=== PATIENT | female | born 2000 | race Hispanic/Latino ===

== ENCOUNTER 2018-05-17 19:37 | Inpatient (IN) | payer OTHER, SELFPAY ==
[2018-05-17] MEDS ORDERED: Phenazopyridine HCl 97.5 MG TABLET ONE (20:01)
[2018-05-17 20:17] LABS: Bilirubin Negative (Negative); Blood, Urine Small (Negative); Glucose, Urine (Dipstick) 500 mg/dL (Negative); Leukocyte Negative (Negative); Nitrite Negative (Negative); Protein, Urine (Dipstick) 100 mg/dL (Neg-Trace); Specific Gravity, Urine 1.025 (1.005-1.030); Urobilinogen 0.2 mg/dL (0.2-1.0); pH, Urine 5.5 (5.0-9.0)
[2018-05-17 20:18] LABS: Hemoglobin 10.9 g/dL (12.0-16.0); Mean Corpuscular HGB CONC 30.4 g/dL (32.0-36.0); Mean Corpuscular Hemoglobin 21.7 pg (25.0-35.0); Mean Corpuscular Volume 71.3 fL (78.0-98.0); Platelet Count 202 thou/uL (130-400); RBC Distribution Width 14.3 % (11.5-14.5); Red Blood Cell (RBC) Count 5.05 mill/uL (4.00-5.20)
[2018-05-17 20:19] LABS: Clarity Hazy (Clear)
[2018-05-17 20:20] LABS: Pregnancy Test - Urine (BHCG) Negative (Negative); Pregu Control Background? CLEAR/WHITE (CLR/WHITE); Pregu Control Bar Appear? YES (CONTROL BAR); Specific Gravity 1.025 (1.002-1.036)
[2018-05-17 20:25] LABS: Bacteria/HPF 3+ HPF (None Seen); WBC/HPF None Seen HPF (0-3)
[2018-05-17 20:29] LABS: #Basophils 0.2 thou/uL (0.0-0.2); #Monocytes 1.5 thou/uL (0.11-0.59); #Neutrophils 13.2 thou/uL (1.40-6.50); %Basophils 1.4 % (0.0-1.0); %Lymphocytes 6.3 % (28.0-48.0); %Monocytes 9.6 % (0.0-4.0); %Neutrophils 82.7 % (31.0-61.0); Hypochromia SLIGHT = 6-15 cells (100X) (0-5/hpf); Large Platelets SLIGHT; MDiff Complete? YES; Microcytosis SLIGHT = 6-15 cells (100X) (0-5/hpf); Ovalocytes SLIGHT = 2-5 cells (100X) (0-1/hpf); PLT Morphology Comment Appears Adequate
[2018-05-17 20:31] LABS: ALT (SGPT) 76 U/L (8-55); AST (SGOT) 32 U/L (5-34); Albumin 3.9 g/dL (3.5-5.0); Alkaline Phosphatase 72 U/L (40-150); Anion Gap 18 mmol/L (10-20); BUN (Urea Nitrogen) 12 mg/dL (7.0-18.7); Bilirubin, Total 1.6 mg/dL (0.2-1.2); Calc. Creatinine Clearance 0 mL/min (70-130); Calcium 9.1 mg/dL (7.8-10.44); Carbon Dioxide 21 mmol/L (22-29); Chloride 94 mmol/L (98-107); Estimated GFR-MDRD 83; Globulin 3.2 g/dL (2.4-3.5); Glucose 360 mg/dL (70-105); Lipase 638 U/L (8-78); Potassium 4.3 mmol/L (3.5-5.1); Protein, Total 7.1 g/dL (6.0-8.3); Sodium 129 mmol/L (136-145)
[2018-05-17] MEDS ORDERED: Ondansetron PF 4 MG/2 ML Vial ONE (21:11)
[2018-05-17] MEDS ORDERED: Morphine 4 MG/ML VIAL ONE (21:11)
[2018-05-17] MEDS ORDERED: Famotidine/PF 20 mg/2ml Vial ONE (21:11)
[2018-05-17] MEDS ORDERED: HYDROcodone/Acetaminophen 5/325 mg Tablet ONE (22:47)
--- NOTE | 2018-05-17 23:10 | ULT ---
RIGHT UPPER QUADRANT ULTRASOUND: 05/17/18 INDICATION: Epigastric abdominal pain with bilateral flank pain, nausea and vomiting, fever. FINDINGS: The liver is mildly enlarged measuring 18.2 cm. There is mild ascites. The gallbladder is distended w ith multiple stones. No gallbladder wall thickening is evidence. There is report of a sonographic Mur phy's sign. Small amount of fluid is seen adjacent to the gallbladder. Common bile duct measures 4.7 mm. The pancreas is largely obscured. The right kidney measures 13 cm. No focal region lesion or hydronep hrosis evident. IMPRESSION: Mild hepatomegaly with mild ascites. Cholelithiasis with report of a sonographic Chin's sign. Findings are equivocal to acute cholecysti tis. Recommend correlation with clinical exam. HIDA scan may be helpful for further evaluation. POS: STEPHAN
[2018-05-17] MEDS ORDERED: Ondansetron ODT 4 MG TAB PO PRN (23:52)
[2018-05-17] MEDS ORDERED: Acetaminophen 325 MG TAB PO PRN (23:52)
[2018-05-17] MEDS ORDERED: Ondansetron PF 4 MG/2 ML Vial IVP PRN (23:52)
[2018-05-18 00:23] VITALS: BMI 38.0
[2018-05-18] MEDS: Piperacillin/Tazobactam 3.375 GM in Sodium Chloride 0.9% 100 ML IVPB SCH ×4 (01:18→20:01)
[2018-05-18] MEDS: Lactated Ringer's 1,000 ML IV SCH ×5 (01:18→20:01)
[2018-05-18] MEDS: Morphine 2 MG/ML SYRINGE SLOW IVP PRN ×2 (02:30→06:07)
[2018-05-18 05:09] LABS: #Lymphocytes 0.8 thou/uL (1.20-3.40); #Monocytes 1.2 thou/uL (0.11-0.59); %Basophils 0.2 % (0.0-1.0); %Lymphocytes 7.5 % (28.0-48.0); %Monocytes 10.8 % (0.0-4.0); %Neutrophils 81.4 % (31.0-61.0); Hemoglobin 10.3 g/dL (12.0-16.0); Mean Corpuscular HGB CONC 30.9 g/dL (32.0-36.0); Mean Corpuscular Hemoglobin 23.1 pg (25.0-35.0); Mean Corpuscular Volume 74.7 fL (78.0-98.0); Mean Platelet Volume 9.5 fL (7.4-10.4); Platelet Count 221 thou/uL (130-400); RBC Distribution Width 14.8 % (11.5-14.5); Red Blood Cell (RBC) Count 4.45 mill/uL (4.00-5.20); White Blood Cell (WBC) Count 11.1 thou/uL (4.8-10.8)
[2018-05-18 05:19] LABS: Anion Gap 15 mmol/L (10-20); BUN (Urea Nitrogen) 12 mg/dL (7.0-18.7); Calc. Creatinine Clearance 192 mL/min (70-130); Calcium 8.3 mg/dL (7.8-10.44); Carbon Dioxide 20 mmol/L (22-29); Chloride 99 mmol/L (98-107); Estimated GFR-MDRD Greater than 90; Glucose 296 mg/dL (70-105); Potassium 4.2 mmol/L (3.5-5.1); Sodium 130 mmol/L (136-145)
[2018-05-18] MEDS ORDERED: Dextrose 50% Abboject 50 ML SYRINGE SLOW IVP PRN (07:56)
[2018-05-18] MEDS ORDERED: Dextrose 5% in Water 1,000 ML IV PRN (07:56)
--- NOTE | 2018-05-18 09:39 | HP ---
CHIEF COMPLAINT: Abdominal pain. HISTORY OF PRESENT ILLNESS: This is a 18-year-old female with past medical history of GERD, presenti ng with abdominal pain. The patient states that she was having abdominal pain, epigastric and also s uprapubic region, and this started on Wednesday, prior to the day of admission. Patient stated that the pain was stabbing in nature and radiated to the back. Patient also had nausea and vomiting x1 in e morning of admission and this prompted the patient to go to [facility] [place]. The patient was then found to have pancreatitis and patient was transferred to the hospital to be fu rther evaluated and managed. At this point, the patient denied any subjective fevers, shortness of b reath, chest pain, palpitations, dysuria, hematuria, hematochezia, constipation, diarrhea. Of note, patient states that she has had episodes of epigastric pain. Patient stated that she had 3 episodes in the past and she went to [place] twice and she was given Prilosec and was treated for GE RD during that time. REVIEW OF SYSTEMS: Positive for nausea, vomiting, epigastric and suprapubic pain. Otherwise, as doc umented in the HPI, all other systems were reviewed and are negative. FAMILY HISTORY: Reviewed and noncontributory to this visit. PAST MEDICAL HISTORY: GERD. PAST SURGICAL HISTORY: and tonsillectomy. PSYCHIATRIC HISTORY: No previous psychiatric history. SOCIAL HISTORY: The patient denies alcohol use. The patient denies any illicit drug use. The patie nt denies any smoking history. ALLERGIES: No known drug allergies. CURRENT MEDICATION: The patient takes Prilosec for GERD. PHYSICAL EXAMINATION: VITAL SIGNS: Blood pressure is 140/93, pulse of 127, respiratory rate of 20, temperature of 99.7, O2 saturation of 97. GENERAL: The patient is lying in bed, does not appear to be in any acute distress. The patient is s peaking in full sentences. HEENT: Normocephalic, atraumatic. Pupils are equal, round, and react to light. Extraocular movemen ts are intact. No scleral icterus. No conjunctival pallor. Mucous membranes are moist. Trachea is midline. Full range of motion. NECK: Supple. No JVDs. CARDIOVASCULAR: Positive S1 and S2, regular rate and rhythm, no murmurs, no gallops, no rubs appreci ated. ABDOMEN: Patient has tenderness to palpation at the epigastric and right upper quadrants. No perito ingrid signs. EXTREMITIES: Patient has 5/5 upper and lower extremity strength and no edema. Good pulses bilateral ly. NEUROLOGIC: Cranial nerves II-XII grossly intact. SKIN: Warm, dry, and intact. PSYCHIATRIC: Normal affect. ED COURSE: The patient received [place], morphine, Pepcid, Zofran, normal saline, Pyridium. LABORATORY DATA: White count is 16.0, hemoglobin is 10.9, hematocrit is 36.0, MCV 71.3, RDW is 14. Sodium is 121, potassium is 4.3, chloride is 94, carbon dioxide of 21, BUN is 12, creatinine 0.87, gl ucose is 360, AST 32, ALT 76, lipase is 638. IMAGING: Right upper quadrant ultrasound shows cholelithiasis with report of sonographic Chin sign . Findings are equivocal to acute cholecystitis. Recommend correlation with clinical exam. HIDA sc an may be helpful for further evaluation. ASSESSMENT AND PLAN: This is a 18-year-old female with recurrent epigastric pain, being admitted for , 1. Acute pancreatitis, likely due to gallstones. The patient's ultrasound showed the patient has ch olelithiasis, and we will start patient on lactated Ringer's running at 200 mL. We will continue sup portive care. 2. Right upper quadrant pain with positive Chin sign, likely due to acute cholecystitis. At this point, ultrasound did not show clear cholecystitis. However, because the read was equivocal, at this point, we are going to consult Surgery and we are going to recommend that Surgery get HIDA scan and follow up with the HIDA scan. We will follow up with surgery's recommendation, and we will continue to monitor the patient closely. We have started the patient on antibiotics empirically to treat for any possible acute cholecystitis. 3. Hyperglycemia. The patient's glucose has been uncontrolled at this time. We will start patient on insulin sliding scale to control patient's glucose. 4. History of gastroesophageal reflux disease. We will continue patient on Pepcid. 5. Deep venous thrombosis and gastrointestinal prophylaxis.
[2018-05-18] MEDS: HumaLOG 300 UNITS/3 ML VIAL SC PRN ×3 (12:46→21:07)
--- NOTE | 2018-05-19 00:36 | CON ---
DATE OF CONSULTATION: 05/18/2018 REQUESTING PHYSICIAN: Dr. Damien Gray. HISTORY OF PRESENT ILLNESS: Ms. Burciaga is a 18-year-old woman, , with a past medical history of gastroesophageal reflux disease. The patient presented with recurrent epigastric to right upper quadrant abdominal pain. The pain started approximately 0400 hours 3 days ago. She had luis soup for dinner the night before onset of this pain. Pain was described as sharp, rated at 9/10, radiating to her back. The patient admitted some nausea, but no emesis. She denied any diarrhea. She denies any fevers or chills. She has had 3 previous episodes in the past for which she was treated for gastroesophageal reflux disease using a proton-pump inhibitor with minimum relief. An onset of this current pain, patient took [id number] preparations including Pepto-Bismol without any improvement. PAST MEDICAL HISTORY: Pertinent for gastroesophageal reflux disease. PAST SURGICAL HISTORY: 3 months ago for a second child. She also had childhood tonsillectomy and adenoidectomy. SOCIAL HISTORY: She is employed as a charge entry clerk. She lives at home with her father and denies any cigarette smoking, ethanol, or illicit drug abuse. FAMILY HISTORY: Notable for diabetes mellitus, but no hypertension, heart disease, or cancer. PREHOSPITALIZATION MEDICATIONS: Omeprazole 40 mg p.o. daily. ALLERGIES: Patient denies any known drug allergies. REVIEW OF SYSTEMS: Ten-point review of systems essentially unremarkable except for as stated in past medical history and chief complaint. PHYSICAL EXAMINATION: GENERAL: This reveals a 18-year-old normally developed woman who is coherent and interactive and appears stated age. The patient is alert and oriented x3, appears to be in no acute distress at the time of my evaluation. VITAL SIGNS: Includes blood pressure 115/79, pulse is 106, respiratory rate is 16, temperature 99.1 degrees Fahrenheit, oxygen saturation is 95% on room air. HEENT: Reveals normocephalic and atraumatic. Pupils are equal, round, and reactive to light and accommodation. She has no sclerae icterus present. Oral mucosa is pink and moist. No lesions are noted. NECK: Supple. No palpable lymphadenopathy or thyromegaly present. HEART: Reveals regular rate with sinus tachycardia. No murmurs or gallops auscultated. LUNGS: Clear to auscultation bilaterally. Breathing regular and unlabored. ABDOMEN: Soft and nondistended. She has right upper quadrant tenderness to palpation. Liver and spleen otherwise nonpalpable below costal margin. She has no rebound tenderness present. EXTREMITIES: Reveals 2+ radial and pedal pulses bilaterally. No ankle edema is present. NEUROLOGIC: Reveals no focal deficits present. LABORATORY AND DIAGNOSTIC FINDINGS: Includes a CBC today with 11,100 white blood cells, this is in contrast to 16,000 white blood cells yesterday. Hemoglobin and hematocrit are stable at 10.3 and 33.2 respectively. Platelet count is 221,000. Metabolic profile: Sodium is 130, potassium is 4.2, chloride is 99, bicarbonate 20, BUN 12, creatinine 0.79, glucose is 296. Serum lipase today is 314, this is an improvement from 638 yesterday. I have personally reviewed the abdominal ultrasound, which is remarkable for distended gallbladder with multiple intraluminal gallstones. There is pericholecystic fluid present. Common bile duct size is enlarged for this patient's age at 4.7 mm in diameter. IMPRESSION: 1. Acute cholecystitis with cholelithiasis. 2. Acute gallstone pancreatitis. 3. Acute hyperglycemia. PLAN: 1. Continue with bowel rest and IV hydration. 2. I agree with IV antibiotic therapy at this time. 3. We will plan for laparoscopic cholecystectomy with intraoperative cholangiogram once the pancreatitis is resolved. Above findings and plan have been discussed with the patient. I have also advised the patient of the risk and benefits of the proposed surgery to include , but not limited to bleeding, infection, injury to bile duct or surrounding structures. This information was given to the patient in the presence of her nurse. She indicated understanding of information given. Thank you again, Dr. Gray, for following me the opportunity to participate in the care of this patient. CLAYTON
[2018-05-19] MEDS: Morphine 2 MG/ML SYRINGE SLOW IVP PRN (01:35)
[2018-05-19] MEDS: Piperacillin/Tazobactam 3.375 GM in Sodium Chloride 0.9% 100 ML IVPB SCH ×4 (01:36→20:29)
[2018-05-19] MEDS: Lactated Ringer's 1,000 ML IV SCH ×3 (01:37→20:29)
[2018-05-19 06:19] LABS: #Lymphocytes 0.8 thou/uL (1.20-3.40); #Monocytes 1.1 thou/uL (0.11-0.59); #Neutrophils 6.8 thou/uL (1.40-6.50); %Basophils 0.4 % (0.0-1.0); %Eosinophils 0.2 % (0.0-10.0); %Lymphocytes 9.1 % (28.0-48.0); %Monocytes 12.8 % (0.0-4.0); %Neutrophils 77.4 % (31.0-61.0); Hemoglobin 8.9 g/dL (12.0-16.0); Mean Corpuscular HGB CONC 30.9 g/dL (32.0-36.0); Mean Corpuscular Hemoglobin 23.3 pg (25.0-35.0); Mean Corpuscular Volume 75.4 fL (78.0-98.0); Mean Platelet Volume 9.4 fL (7.4-10.4); Platelet Count 212 thou/uL (130-400); RBC Distribution Width 14.8 % (11.5-14.5); Red Blood Cell (RBC) Count 3.84 mill/uL (4.00-5.20); White Blood Cell (WBC) Count 8.8 thou/uL (4.8-10.8)
[2018-05-19 06:29] LABS: ALT (SGPT) 36 U/L (8-55); AST (SGOT) 14 U/L (5-34); Albumin 3.1 g/dL (3.5-5.0); Alkaline Phosphatase 61 U/L (40-150); Anion Gap 12 mmol/L (10-20); BUN (Urea Nitrogen) 9 mg/dL (7.0-18.7); Bilirubin, Total 0.9 mg/dL (0.2-1.2); Calc. Creatinine Clearance 229 mL/min (70-130); Calcium 8.2 mg/dL (7.8-10.44); Carbon Dioxide 25 mmol/L (22-29); Chloride 102 mmol/L (98-107); Estimated GFR-MDRD Greater than 90; Globulin 2.7 g/dL (2.4-3.5); Glucose 242 mg/dL (70-105); Lipase 103 U/L (8-78); Potassium 3.8 mmol/L (3.5-5.1); Protein, Total 5.8 g/dL (6.0-8.3); Sodium 135 mmol/L (136-145)
--- NOTE | 2018-05-19 07:58 | PRG ---
DATE OF SERVICE: 05/19/2018 SUBJECTIVE: The patient is seen and examined at bedside. She is not having any pain, no nausea, no vomiting. She is feeling significantly better. OBJECTIVE: VITAL SIGNS: Blood pressure is 119/81, pulse is 101, temperature is 98.3, respiratory rate is 16, pu lse oximetry is 98% on room air. HEENT: Head is atraumatic, normocephalic. Eyes are PERRLA. Sclerae nonicteric. Oral mucosa is leticia st. NECK: Supple, no lymphadenopathy. LUNGS: Clear. HEART: S1, S2 normal. ABDOMEN: Soft, nontender, nondistended. Bowel sounds are present, no organomegaly. EXTREMITIES: No clubbing, cyanosis or edema. NEUROLOGIC: She is alert and oriented x4. There is not any sensorimotor deficits present. Cranial nerves are intact. LABORATORY DATA: Showed white count of 8.8, hemoglobin 8.9, hematocrit 29.0, MCV 75.4, platelet coun t is 212, 77% of neutrophils. Sodium of 135, glucose is ranging from 230-272, alkaline phosphatase i s 61, total protein 5.8, lipase 103. IMPRESSION: 1. Acute pancreatitis secondary to gallstones. She is doing significantly better. She does not hav e much pain anymore. She was seen by Dr. Foley, general surgeon, who would like to wait until pancre atitis is improved so he can do the cholecystectomy. 2. Acute cholecystitis. As above we are waiting for the surgeon to make decision when she is going to have the surgery. 3. Hyperglycemia. She is not aware of any diabetes in the past. Her glycemia is ranging from 230-2 83. We will use insulin every 6 hours to cover and most likely she will be released on oral metformi n after the surgery. We will continue current regimen. Continue Zosyn IV and awaiting decision by general surgeon about t he cholecystectomy.
[2018-05-19] MEDS ORDERED: Glycopyrrolate 0.2 MG/ML 5 ML SYRINGE ONE (10:48)
[2018-05-19] MEDS ORDERED: Ketorolac Tromethamine 30 MG/ML VIAL ONE (10:48)
[2018-05-19] MEDS ORDERED: Lidocaine 1% PF 5 ML VIAL ONE (10:48)
[2018-05-19] MEDS ORDERED: PROPOFOL 200 MG/20 ML VIAL ONE (10:48)
[2018-05-19] MEDS ORDERED: Ondansetron PF 4 MG/2 ML Vial ONE (10:48)
[2018-05-19] MEDS ORDERED: Iothalamate Meglumine 60% 50 ML VIAL FS ONE (12:13)
[2018-05-19] MEDS ORDERED: Bupivacaine/Epinephrine 0.25% 30 ML VIAL ONE (12:13)
[2018-05-19] MEDS ORDERED: Fentanyl 100 MCG/2 ML VIAL ONE (12:21)
[2018-05-19] MEDS ORDERED: Insulin Regular 300 UNITS/3 ML VIAL ONE (13:04)
[2018-05-19] MEDS ORDERED: Piperacillin/Tazobactam 3.375 GM VIAL ONE (13:08)
[2018-05-19] MEDS ORDERED: Promethazine HCl 25 MG/ML VIAL IM PRN (14:32)
[2018-05-19] MEDS ORDERED: Ondansetron HCl/PF 4 MG/2 ML Vial IVP PRN (14:32)
[2018-05-19] MEDS ORDERED: Promethazine HCl 25 MG/ML VIAL SLOW IVP PRN (14:32)
[2018-05-19] MEDS ORDERED: Morphine 2 MG/ML SYRINGE SLOW IVP PRN (14:58)
[2018-05-19] MEDS ORDERED: traMADol HCl 50 MG TAB PO PRN (14:59)
--- NOTE | 2018-05-19 15:39 | RAD ---
INTRAOPERATIVE CHOLANGIOGRAM: HISTORY: A 18-year-old female with a history of gallstones status post laparoscopic cholecystectomy. FINDINGS: Three portable fluoroscopic spot films were presented for interpretation. Contrast media is ejected through the cystic duct filling a normal caliber common bile duct. On one of the images, there is a suggestion of some minimal decreased density in the common hepatic duct region. This may just be rel ated to overlying bone or could possibly represent small air bubbles. I think this would be unlikely to represent a calculus or calculi. There is emptying from the common bile duct into the duodenum. IMPRESSION: No overt retained calculus. Emptying of the common duct into the duodenum. POS: STEPHAN
[2018-05-19] MEDS ORDERED: Acetaminophen 500 MG TAB PO SCH (18:00)
[2018-05-19] MEDS ORDERED: Ketorolac Tromethamine 30 MG/ML VIAL IVP SCH (18:00)
--- NOTE | 2018-05-19 18:22 | OP ---
DATE OF OPERATION: 05/19/2018 PREOPERATIVE DIAGNOSES: 1. Acute cholecystitis and cholelithiasis. 2. Resolved acute gallstone pancreatitis. POSTOPERATIVE DIAGNOSES: 1. Acute cholecystitis and cholelithiasis. 2. Resolved acute gallstone pancreatitis. 3. Hemorrhagic pelvic fluid suspicious for ruptured ovarian cyst. SURGERY PERFORMED: Laparoscopic appendectomy with normal intraoperative cholangiogram. SURGEON: Jaison Foley DO ANESTHESIA: General endotracheal. ESTIMATED BLOOD LOSS: 20 mL. FLUIDS GIVEN: 1400 mL crystalloids. SPONGE AND INSTRUMENT COUNT: Certified as correct x2. COMPLICATIONS: None apparent at the time of operation. INDICATIONS FOR OPERATION: This is a 18-year-old woman presented with abdominal pain. Clin ical and radiographic examination was consistent with acute gallstone pancreatitis. The patient was managed conservatively with bowel rest and IV hydration. Today, she denies any abdominal pain. She has no nausea or vomiting. Lipase is almost normal. Abdominal ultrasound revealed multiple intralum inal gallstones and a dilated gallbladder with pericholecystic fluid and common bile duct was dilated for the patient's age at 4.7 mm. Decision was made to bring the patient to the operating room today for laparoscopic cholecystectomy with intraoperative cholangiogram. Findings are consistent with ga llbladder in the usual anatomic location completely encased by omental adhesions. The patient was al so found with an incidental hemorrhagic pelvic ascites. She did not have any previous history of tra aleksey. DESCRIPTION OF PROCEDURE: Informed consent was obtained and the patient was brought to the operating room and placed in supine position. Following general anesthesia, abdomen was sterilely prepped and draped in usual fashion. The skin below the umbilicus was infiltrated with 0.25% Marcaine with epin ephrine. A small curvilinear infraumbilical incision was made using an 11-scalpel. Umbilical stalk was grasped with [place] and elevated. Veress needle was inserted through the incision and placed in the peritoneal cavity through which the abdomen was insufflated with 3 liters of CO2 gas. Intraabdom inal pressure noted at 2 mmHg. Following abdominal insufflation, Veress needle was removed and a 5-m m trocar introduced using the Visiport under laparoscopy. Laparoscopy confirmed proper placement of the port, no injuries to underlying structures. Additional laparoscopy revealed gallbladder in the u sual anatomic location completely encased by omental adhesions. Additional laparoscopy reveals moder ate amount of hemorrhagic ascites in the pelvis that was old blood. This will be consistent with this patient's drop in hemoglobin from 10.9 on 05/17/2018 to 8.9 this mo rning. Under laparoscopy, a 12-mm epigastric and two 5-mm right lateral subcostal ports were placed after the overlying skin was infiltrated with 0.25% Marcaine with epinephrine and appropriate incisio ns made. The patient was placed in the reverse Trendelenburg position, rotated to her left. I intro duced [place] dissector with cautery to take down omental adhesions to reveal a markedly dilated gal lbladder. A Prestige grasper was then introduced through the right lateral subcostal port, grasping the fundus of the gallbladder, which was elevated cephalad. Omental adhesions were then dissected of f the remainder of the gallbladder meticulously with good hemostasis achieved. A second Prestige gra sper was then introduced through the right medial subcostal port grasping the Kelly's pouch, which was retracted laterally. An anterior coursing cystic artery was dissected free from surrounding str uctures at the triangle of Calot. This was then divided between clips. Two clips applied proximally and one clip at the junction of the cystic artery and gallbladder. The cystic duct was carefully di ssected free from surrounding structures. I placed one clip at the junction of the cystic duct and g allbladder and a cystotomy was then made proximal to the securing clip. A cholangiocatheter was intr oduced through the right upper quadrant and inserted into the cystic ductal lumen securing this with a single clip. Saline was flushed through this without resistance. Cholangiogram was performed using 10 mL of Conray contrast. Cholangiogram revealed no filling defect s. Total fluoroscopy time was 18 seconds. Following cholangiography, the securing clip was removed and the catheters were removed from the abdo hal cavity. The cystic duct was divided between clips, applying two clips proximally. Gallbladder surface removed from the liver bed using cautery with good hemostasis. Operative site was inspected for good hemostasis. Finding no other pathology, laparoscopy was terminated. The pelvic hemorrhagi c ascites had been evacuated using suction and no active bleeding was noted there. Fascia of the epi gastric port was closed using 0 Vicryl suture and Endo closure device under laparoscopy. The abdomen was desufflated. All ports and instruments removed and accounted for. Skin incisions were closed u sing 4-0 Monocryl suture in subcuticular fashion. Dermabond was applied over the incisional closure. The patient tolerated the operation without any apparent complication and was returned to recovery room in satisfactory condition.
[2018-05-19] MEDS: Ketorolac Tromethamine 30 MG/ML VIAL IVP SCH (20:29)
[2018-05-19] MEDS: Acetaminophen 500 MG TAB PO SCH (20:30)
[2018-05-19] MEDS: HumaLOG 300 UNITS/3 ML VIAL SC PRN (22:03)
[2018-05-20] MEDS: Acetaminophen 500 MG TAB PO SCH ×4 (02:49→20:19)
[2018-05-20] MEDS: Ketorolac Tromethamine 30 MG/ML VIAL IVP SCH ×4 (02:50→20:19)
[2018-05-20] MEDS: Lactated Ringer's 1,000 ML IV SCH ×3 (02:51→20:20)
[2018-05-20] MEDS: Piperacillin/Tazobactam 3.375 GM in Sodium Chloride 0.9% 100 ML IVPB SCH ×2 (02:51→08:08)
[2018-05-20 05:19] LABS: #Lymphocytes 0.7 thou/uL (1.20-3.40); #Monocytes 0.8 thou/uL (0.11-0.59); #Neutrophils 6.2 thou/uL (1.40-6.50); %Basophils 0.6 % (0.0-1.0); %Eosinophils 0.4 % (0.0-10.0); %Lymphocytes 9.1 % (28.0-48.0); %Monocytes 10.3 % (0.0-4.0); %Neutrophils 79.6 % (31.0-61.0); Hemoglobin 8.6 g/dL (12.0-16.0); Mean Corpuscular HGB CONC 30.1 g/dL (32.0-36.0); Mean Corpuscular Volume 76.3 fL (78.0-98.0); Mean Platelet Volume 9.3 fL (7.4-10.4); Platelet Count 219 thou/uL (130-400); RBC Distribution Width 14.6 % (11.5-14.5); Red Blood Cell (RBC) Count 3.72 mill/uL (4.00-5.20); White Blood Cell (WBC) Count 7.7 thou/uL (4.8-10.8)
[2018-05-20] MEDS: HumaLOG 300 UNITS/3 ML VIAL SC PRN ×3 (05:36→17:04)
[2018-05-20 05:38] LABS: ALT (SGPT) 31 U/L (8-55); AST (SGOT) 24 U/L (5-34); Albumin 2.9 g/dL (3.5-5.0); Alkaline Phosphatase 54 U/L (40-150); Anion Gap 13 mmol/L (10-20); BUN (Urea Nitrogen) 9 mg/dL (7.0-18.7); Bilirubin, Total 0.6 mg/dL (0.2-1.2); Calc. Creatinine Clearance 223 mL/min (70-130); Calcium 7.7 mg/dL (7.8-10.44); Carbon Dioxide 25 mmol/L (22-29); Chloride 101 mmol/L (98-107); Estimated GFR-MDRD Greater than 90; Globulin 2.6 g/dL (2.4-3.5); Glucose 321 mg/dL (70-105); Lipase 45 U/L (8-78); Potassium 3.7 mmol/L (3.5-5.1); Protein, Total 5.5 g/dL (6.0-8.3); Sodium 135 mmol/L (136-145)
[2018-05-20] MEDS ORDERED: Dextrose 50% Abboject 50 ML SYRINGE SLOW IVP PRN (08:18)
[2018-05-20] MEDS ORDERED: Dextrose 5% in Water 1,000 ML IV PRN (08:18)
[2018-05-20] MEDS ORDERED: glipiZIDE 5 MG TAB PO SCH (09:00)
[2018-05-20] MEDS: traMADol HCl 50 MG TAB PO PRN ×2 (09:53→17:04)
--- NOTE | 2018-05-20 11:17 | PRG ---
DATE OF SERVICE: 05/20/2018 SUBJECTIVE: Ms. Burciaga is a 18-year-old obese female who was admitted with gallstone pancreatitis. S he is postoperative day #1, status post cholecystectomy. She is sitting up in bed, tolerating diet, urinating and having bowel movements on her own. She states that she still has some pain, but is imp roved and no nausea, no vomiting. She has ambulated. She is noted to be hyperglycemic with no histo ry of diabetes. She is still on IV fluids. We have requested this to be stopped. OBJECTIVE: VITAL SIGNS: Temperature is 98.8, blood pressure 103/74, heart rate is 88, respiratory rate is 18 an d she is 95% on room air. GENERAL: A 18-year-old obese female sitting up in bed in no acute distress. HEENT: Normocephalic, atraumatic. NECK: Trachea is midline. No JVD is appreciated. RESPIRATORY: Bilateral breath sounds clear to auscultation upper and lower bilaterally. CARDIOVASCULAR: Regular rate and rhythm. No murmurs are appreciated. ABDOMEN: Obese. Surgery incisions are clean, dry. She has a soft abdomen. No grimace, no masses o r virginie distention is appreciated. PELVIS: Deferred. MUSCULOSKELETAL: Moves extremities well. No edema is appreciated. SKIN: [place], warm and dry. NEUROLOGIC: Alert and oriented to person, place, time, and event. PSYCHIATRIC: Normal mood and affect. LABORATORY DATA: From this morning, white blood cell count has down trended normalized to 7.7 now, p latelets 219, hemoglobin and hematocrit 8.6 and 28.4, respectively. Sodium 135, potassium 3.7, chlor eliane is 101, BUN is 9 and creatinine 0.68, CO2 is 25, glucose was 321. AST, ALT 24 and 31 respectivel y with a bilirubin total of 0.6. Microbiology: Urine is clear. ASSESSMENT AND PLAN: 1. Gallstone pancreatitis, resolving with normalized lipase. 2. Acute cholecystitis, status post cholecystectomy. 3. Obesity. 4. Hyperglycemia, concern for diabetes. PLAN: 1. Stop IV fluids. 2. Can increase diet. 3. Increased to medium dose sliding scale insulin. 4. Dietary consult for diabetic education. She has follow up with [facility]. 5. Continue ambulation. 6. Pain control as needed. From a surgery standpoint, we will sign off. The remainder can be per the primary team. She can fol low up in Surgery Clinic in 2 weeks, the Trauma Clinic on a Wednesday or a . We appreciate the opportunity to assist with Ms. Burciaga's care. If there is any other further surgica l needs please do not hesitate to call us back. This patient was reviewed with Dr. Foley.
--- NOTE | 2018-05-20 12:59 | PRG ---
DATE OF SERVICE: 05/20/2018 SUBJECTIVE: The patient is seen and examined at the bedside. She has some abdominal discomfort post -laparoscopic cholecystectomy yesterday. She is on a full liquid diet, tolerating the diet without a ny problems. No nausea, no vomiting. OBJECTIVE: VITAL SIGNS: Blood pressure is 103/74, temperature is 98.8, pulse is 89, respiratory rate is 18, O2 saturation 95% on room air. GENERAL: She is obese, her BMI is 38. HEENT: Head is atraumatic, normocephalic. Eyes are PERRLA. Sclerae nonicteric. Oral mucosa is leticia st. NECK: Supple. LUNGS: Clear. HEART: S1, S2 normal. ABDOMEN: Obese. Points of entry for laparoscopic cholecystectomy look good. There is tenderness abraham und those points of entry, no redness, no guarding, no masses. EXTREMITIES: No clubbing, cyanosis or edema. NEUROLOGIC: She is alert and oriented x4. There is not any motor or sensory deficit present. Crani al nerves are intact. LABORATORY DATA: Showed a white count of 7.7, hemoglobin 8.6, hematocrit 28.4, MCV 76.3, platelet co unt 219. Chemistry showed sodium of 135, potassium 3.7, chloride 101, CO2 25, BUN 9, creatinine 0.68 . Glycemia is ranging from 179 to 321. Serum total protein 5.5, albumin 2.9, lipase 45. Microbiolo gy: Urine culture less than 10,000 colonies of mixed skin octaviano present. ASSESSMENT: 1. Acute pancreatitis secondary to gallstones, status post laparoscopic cholecystectomy done yesterd ay by Dr. Foley, the patient is released from surgical service, says she can go home according to the m. 2. Acute cholecystitis as above. 3. Hyperglycemia. 4. Microcytic anemia. The patient states that she does not have heavy periods. PLAN: I am going to keep her additional 24 hours in the hospital. I am starting her on glipizide 5 mg twice a day. Her glycemia is way too high to send home. We will continue her IV Zosyn and will d o iron studies and postpone the discharge until her glycemia is better controlled.
[2018-05-20 13:45] LABS: Iron 13 ug/dL (50-170); Iron Binding Capacity, Total 234 mcg/dL (265-497)
[2018-05-20] MEDS: glipiZIDE 5 MG TAB PO SCH (17:04)
[2018-05-21] MEDS: Acetaminophen 500 MG TAB PO SCH ×2 (03:29→08:41)
[2018-05-21] MEDS: Ketorolac Tromethamine 30 MG/ML VIAL IVP SCH ×2 (03:30→08:42)
[2018-05-21] MEDS: HumaLOG 300 UNITS/3 ML VIAL SC PRN (06:11)
[2018-05-21] MEDS: Lactated Ringer's 1,000 ML IV SCH (06:14)
[2018-05-21 07:15] VITALS: BP 111/76; TEMP 98.2
[2018-05-21] MEDS ORDERED: glipiZIDE 5 MG TAB PO SCH (07:30)
[2018-05-21] MEDS: glipiZIDE 5 MG TAB PO SCH (08:41)
[2018-05-21 08:57] LABS: ALT (SGPT) 20 U/L (8-55); AST (SGOT) 14 U/L (5-34); Albumin 2.7 g/dL (3.5-5.0); Alkaline Phosphatase 51 U/L (40-150); Anion Gap 5 mmol/L (10-20); BUN (Urea Nitrogen) 5 mg/dL (7.0-18.7); Bilirubin, Total 0.3 mg/dL (0.2-1.2); Calc. Creatinine Clearance 261 mL/min (70-130); Carbon Dioxide 33 mmol/L (22-29); Chloride 101 mmol/L (98-107); Estimated GFR-MDRD Greater than 90; Globulin 2.7 g/dL (2.4-3.5); Glucose 230 mg/dL (70-105); Lipase 36 U/L (8-78); Potassium 3.2 mmol/L (3.5-5.1); Protein, Total 5.4 g/dL (6.0-8.3); Sodium 136 mmol/L (136-145)
--- NOTE | 2018-05-21 13:06 | PDOC.PN ---
- Subjective Encounter Start Date: 05/21/18 Encounter Start Time: 08:45 Subjective: feels better, is amb and eating solid diet -: has passed stool - Objective Resuscitation Status: Resuscitation Status FULL:Full Resuscitation MAR Reviewed: Yes Vital Signs & Weight: Vital Signs (12 hours) Temp Pulse Resp BP Pulse Ox 05/21/18 08:00 93 L 05/21/18 07:12 98.2 F 82 20 111/76 93 L Weight Weight 235 lb 8 oz I&O: 05/20/18 05/21/18 05/22/18 06:59 06:59 06:59 Intake Total 240 Balance 240 Result Diagrams: 05/20/18 03:52 05/21/18 08:23 Additional Labs: Accuchecks 05/21/18 05/20/18 05/20/18 04:05 19:24 16:53 POC Glucose 249 H 239 H 240 H Phys Exam - Physical Examination HEENT: PERRLA, moist MMs Neck: no JVD, supple Respiratory: no wheezing, no rales Cardiovascular: RRR, no significant murmur Gastrointestinal: soft, no distention, positive bowel sounds Musculoskeletal: no edema, pulses present Neurological: non-focal, moves all 4 limbs Psychiatric: normal affect, A&O x 3 Dx/Plan (1) DM type 2 (diabetes mellitus, type 2) Status: Acute Qualifiers: Diabetes mellitus rat exterminator insulin use: without rat exterminator use Diabetes mellitus complication status: with unspecified complications Qualified Code(s) : E11.8 - Type 2 diabetes mellitus with unspecified complications Comment: new onset (2) Obesity Code(s): E66.9 - OBESITY, UNSPECIFIED Status: Chronic Qualifiers: Obesity classification: adult class 2 (BMI 35 - 39.9) (3) Chronic anemia Code(s): D64.9 - ANEMIA, UNSPECIFIED Status: Chronic (4) Pancreatitis Code(s): K85.90 - ACUTE PANCREATITIS WITHOUT NECROSIS OR INFECTION, UNSP Status: Acute Qualifiers: Chronicity: acute (5) S/P laparoscopic cholecystectomy Code(s): Z90.49 - ACQUIRED ABSENCE OF OTHER SPECIFIED PARTS OF DIGESTIVE TRACT Status: Acute - Plan hemostable -: on metformin bid and glypizide daily -: dc pt home * .
--- NOTE | 2018-05-22 16:39 | DIS ---
DATE OF ADMISSION: 05/18/2018 DATE OF DISCHARGE: 05/21/2018 DISCHARGE DISPOSITION: To home. PRIMARY DISCHARGE DIAGNOSES: Acute cholecystitis with gallstone pancreatitis, status post laparoscopic cholecystectomy, chronic anemia, diabetes mellitus type 2, obesity. PROCEDURES DONE DURING HOSPITALIZATION: Abdominal ultrasound done showed cholelithiasis with equivocal signs of acute cholecystitis. Patient had laparoscopic cholecystectomy with normal intraoperative cholangiogram. Patient had laparoscopic cholecystectomy done by Dr. Foley on 05/19/2018. Histopathology from the gallbladder specimen reveals chronic cholecystitis with cholelithiasis. Hemoglobin and hematocrit 8.6 and 28, MCV 76, platelet count 219. Discharge total bilirubin 0.3, AST 14, ALT 20, alkaline phosphatase 51, albumin 2.7, serum iron 13 and ferritin 419. Had a lipase of 638 on the day of admission with total bilirubin of 1.6. DISCHARGE MEDICATIONS: Omeprazole 40 mg p.o. daily, glipizide 5 mg p.o. daily, metformin 500 mg p.o. daily, ferrous sulfate 325 mg p.o. twice daily. INPATIENT CONSULT: Dr. Foley for General Surgery. DISCHARGE PLAN: Patient to follow up with Dr. Foley as advised and primary care physician in 1 week. BRIEF COURSE DURING HOSPITALIZATION: Patient initially came to ER with complaints of abdominal pain. Patient had right upper quadrant ultrasound done which was suspicious for cholecystitis with cholelithiasis. She has had consultation with Dr. Foley. The patient was taken to operating room on and has had laparoscopic cholecystectomy done. The patient also had acute pancreatitis due to gallstones. Her histopathology confirms chronic cholecystitis with cholelithiasis. Prior to discharge, she is eating and ambulating well. She needs to follow up with Dr. Foley as advised. The patient has been diagnosed with new onset diabetes mellitus type 2. The patient has a BMI of 38. She needs to continue Glucophage and glipizide as prescribed. She needs to check fingerstick glucose twice daily and record to follow up with primary care physician for changes in her medications. Please see a [id number] documentation on [employer] for the day of discharge. [facility]
== END 2018-05-21 11:45 | disposition home or self-care (01) | DRG 417 ==
LOC: SCSER 19:37 → T4-A 23:53
PROVIDERS: ADMIT Internal Medicine; ATTEND Internal Medicine
PROC: 0FT44ZZ Resection of Gallbladder, Percutaneous Endoscopic Approach (ICD-10-PCS; principal; 2018-05-19)
PROC: BF14YZZ Fluoroscopy of Gallbladder, Bile Ducts and Pancreatic Ducts using Other Contrast (ICD-10-PCS; 2018-05-19)
DX: K80.00 Calculus of gallbladder with acute cholecystitis without obstruction (principal); K85.10 Biliary acute pancreatitis without necrosis or infection; E11.65 Type 2 diabetes mellitus with hyperglycemia; K21.9 Gastro-esophageal reflux disease without esophagitis; Z79.899 Other long term (current) drug therapy; N83.209 Unspecified ovarian cyst, unspecified side; E66.9 Obesity, unspecified; Z68.35 Body mass index [BMI] 35.0-35.9, adult
CPT/HCPCS: 36415; 36416; 47532; 76705; 80048; 80053; 81003; 81015; 81025; 82728; 83540; 83550; 83690; 84478; 85025; 87086; 88304; 90471; 90686; 96361; 96374; 96375; G0008; J0131; J1815; J1885; J2270; J2405; J2543; J3010; J7050; Q9961; S0028

== ENCOUNTER 2018-05-25 21:46 | Emergency (ER) | payer SELFPAY ==
[2018-05-25 22:28] LABS: Base Excess-Venous 0.7 mmol/L (0 (+/- 2.5)); Bicarbonate (HCO3v) 25.5 mmol/L (1.0-85.0); CO2 Tension (PvCO2) 40.6 mmHg (41.0-51.0); Calcium, Ionized 1.13 mmol/L (1.12-1.32); Hemoglobin - Calc 11.7 g/dL (12.0-18.0); O2 Tension (PvO2) 30.1 mmHg (35.0-45.0); T. Carbon Dioxide 26.7 mmol/L (1.0-85.0); pH (Venous) 7.406 (7.35-7.45); vO2 Saturation-calc 57.9 % (94-98)
[2018-05-25 22:40] LABS: ALT (SGPT) 14 U/L (8-55); AST (SGOT) 12 U/L (5-34); Albumin 3.5 g/dL (3.5-5.0); Alkaline Phosphatase 75 U/L (40-150); Anion Gap 20 mmol/L (10-20); BUN (Urea Nitrogen) 7 mg/dL (7.0-18.7); Bilirubin, Total 0.4 mg/dL (0.2-1.2); Calc. Creatinine Clearance 0 mL/min (70-130); Calcium 8.9 mg/dL (7.8-10.44); Carbon Dioxide 23 mmol/L (22-29); Chloride 95 mmol/L (98-107); Estimated GFR-MDRD Greater than 90; Globulin 3.7 g/dL (2.4-3.5); Glucose 395 mg/dL (70-105); Lipase 65 U/L (8-78); Potassium 4.2 mmol/L (3.5-5.1); Protein, Total 7.2 g/dL (6.0-8.3); Sodium 134 mmol/L (136-145)
[2018-05-25 22:43] LABS: #Basophils 0.1 thou/uL (0.0-0.2); #Eosinphils 0.2 thou/uL (0.0-0.7); #Lymphocytes 1.5 thou/uL (1.20-3.40); #Monocytes 0.7 thou/uL (0.11-0.59); #Neutrophils 8.7 thou/uL (1.40-6.50); %Eosinophils 1.4 % (0.0-10.0); %Lymphocytes 13.4 % (28.0-48.0); %Monocytes 6.6 % (0.0-4.0); %Neutrophils 77.6 % (31.0-61.0); Hemoglobin 9.4 g/dL (12.0-16.0); Hypochromia SLIGHT = 6-15 cells (100X) (0-5/hpf); Large Platelets SLIGHT; MDiff Complete? YES; Mean Corpuscular Hemoglobin 21.8 pg (25.0-35.0); Mean Corpuscular Volume 70.2 fL (78.0-98.0); Mean Platelet Volume 8.7 fL (7.4-10.4); Microcytosis SLIGHT = 6-15 cells (100X) (0-5/hpf); Ovalocytes MODERATE= 6-15 cells (100X) (0-1/hpf); Platelet Count 400 thou/uL (130-400); Polychromasia SLIGHT = 2-3 cells (100X) (0-2/hpf); RBC Distribution Width 14.4 % (11.5-14.5); Red Blood Cell (RBC) Count 4.31 mill/uL (4.00-5.20); White Blood Cell (WBC) Count 11.2 thou/uL (4.8-10.8)
== END 2018-05-25 23:52 | disposition home or self-care (01) ==
LOC: SCSER 21:46
DX: E11.65 Type 2 diabetes mellitus with hyperglycemia (principal); K21.9 Gastro-esophageal reflux disease without esophagitis; Z79.899 Other long term (current) drug therapy; Z79.84 Long term (current) use of oral hypoglycemic drugs
CPT/HCPCS: 36416; 80053; 82330; 82803; 83690; 85025; 96360

== ENCOUNTER 2018-06-10 09:32 | Inpatient (IN) | payer SELFPAY ==
[2018-06-10 10:27] LABS: BHCG - Serum Negative (NEGATIVE); Pregs Control Background? CLEAR/WHITE (CLR/WHITE); Pregs Control Bar Appear? YES (CONTROL BAR)
[2018-06-10 10:31] LABS: ALT (SGPT) 10 U/L (8-55); AST (SGOT) 8 U/L (5-34); Albumin 4.4 g/dL (3.5-5.0); Alkaline Phosphatase 123 U/L (40-150); BUN (Urea Nitrogen) 7 mg/dL (7.0-18.7); Bilirubin, Total 0.5 mg/dL (0.2-1.2); Calc. Creatinine Clearance 0 mL/min (70-130); Calcium 9.3 mg/dL (7.8-10.44); Chloride 106 mmol/L (98-107); Estimated GFR-MDRD 53; Globulin 4.4 g/dL (2.4-3.5); Glucose 497 mg/dL (70-105); Potassium 3.2 mmol/L (3.5-5.1); Protein, Total 8.8 g/dL (6.0-8.3); Sodium 135 mmol/L (136-145)
[2018-06-10 10:39] LABS: Carbon Dioxide Less than 8 mmol/L (22-29)
[2018-06-10 10:41] LABS: Hemoglobin 11.8 g/dL (12.0-16.0); Mean Corpuscular HGB CONC 29.9 g/dL (32.0-36.0); Mean Corpuscular Hemoglobin 21.6 pg (25.0-35.0); Mean Corpuscular Volume 72.1 fL (78.0-98.0); Mean Platelet Volume 7.9 fL (7.4-10.4); Platelet Count 428 thou/uL (130-400); RBC Distribution Width 16.6 % (11.5-14.5); Red Blood Cell (RBC) Count 5.46 mill/uL (4.00-5.20); White Blood Cell (WBC) Count 8.2 thou/uL (4.8-10.8)
[2018-06-10 10:54] LABS: Anisocytosis SLIGHT = 6-15 cells (100X) (0-5/hpf); Band 2 % (5-11); Eosinophils 1 % (0-10); Hypochromia SLIGHT = 6-15 cells (100X) (0-5/hpf); Lymphocytes 10 % (28-48); MDiff Complete? YES; Microcytosis SLIGHT = 6-15 cells (100X) (0-5/hpf); Monocytes 6 % (0-4); Neutrophil 80 % (31-61); PLT Morphology Comment Appears Increased
--- NOTE | 2018-06-10 10:54 | RAD ---
RADIOGRAPH CHEST 1 VIEW: Date: 06/10/18 HISTORY: 18-year-old female with tachypnea and hyperglycemia. FINDINGS: The visualized lung levy are clear. The cardiomediastinal silhouette and hilar shadows are normal. The lateral costophrenic angles are sharp. The osseous structures appear normal. There is no pneu mothorax. IMPRESSION: Negative. jn [] POS: C
[2018-06-10] MEDS ORDERED: Insulin Regular 300 UNITS/3 ML VIAL ONE (11:13)
[2018-06-10 11:23] LABS: CO2 Tension (PvCO2) 24.4 mmHg (41.0-51.0); pH (Venous) 7.101 (7.35-7.45)
[2018-06-10 11:24] LABS: Bicarbonate (HCO3v) 7.6 mmol/L (22.0-29.0); O2 Tension (PvO2) 47.6 mmHg (35.0-45.0)
[2018-06-10 11:25] LABS: Base Excess-Venous -20.5 mmol/L (0 (+/- 2.5)); Hemoglobin - Calc 14.1 g/dL (12.0-18.0); Potassium 3.1 mmol/L (3.4-4.7)
[2018-06-10 11:26] LABS: Calcium, Ionized 1.22 mmol/L (1.12-1.32); T. Carbon Dioxide 8.3 mmol/L (1.0-85.0)
[2018-06-10 12:04] LABS: Bilirubin Small (Negative); Blood, Urine Moderate (Negative); Clarity Slightly Cloudy (Clear); Glucose, Urine (Dipstick) 500 mg/dL (Negative); Leukocyte Trace (Negative); Nitrite Negative (Negative); Protein, Urine (Dipstick) 100 mg/dL (Neg-Trace); Urobilinogen 0.2 mg/dL (0.2-1.0); pH, Urine 5.5 (5.0-9.0)
[2018-06-10 12:05] LABS: Specific Gravity, Urine 1.027 (1.002-1.036)
[2018-06-10 12:18] LABS: Bacteria/HPF 2+ HPF (None Seen); Yeast-All Forms 2+ HPF (None Seen)
[2018-06-10 12:19] LABS: Hyaline Casts/LPF NONE SEEN LPF (0-3 Hyaline)
[2018-06-10] MEDS ORDERED: Acetaminophen 500 MG TAB ONE (13:39)
[2018-06-10] MEDS ORDERED: Ondansetron PF 4 MG/2 ML Vial ONE (13:39)
[2018-06-10] MEDS ORDERED: Potassium Chloride 20 MEQ TAB ONE (14:17)
[2018-06-10 16:15] VITALS: BMI 33.7
[2018-06-10] MEDS ORDERED: Dextrose 5 %-0.45 % NaCl 1,000 ML IV PRN ×2 (16:54→17:06)
[2018-06-10] MEDS ORDERED: Sodium Chloride 0.9% 1,000 ML IV PRN ×8 (16:54→17:06)
[2018-06-10] MEDS ORDERED: Dextrose 5% in Water 1,000 ML IV PRN (16:54)
[2018-06-10] MEDS ORDERED: D5 1/2 NS w/20 mEq KCL 1,000 ML IV PRN (16:54)
[2018-06-10] MEDS ORDERED: NS 0.9% w/ 20 MEQ KCL 1,000 ML/1,000 ML BAG IV PRN ×2 (16:54)
[2018-06-10] MEDS ORDERED: Dextrose 50% Abboject 50 ML SYRINGE SLOW IVP PRN (16:54)
[2018-06-10] MEDS ORDERED: CCU ELECTROLYTE REPLACEMENT PROTOCOL FS PRN ×2 (16:55→17:18)
[2018-06-10] MEDS ORDERED: Potassium Chloride 40 MEQ in Sodium Chloride 0.9% 250 ML 250 ML IVPB PRN (16:55)
[2018-06-10] MEDS ORDERED: Potassium Phosphate 12 MMOL in Sodium Chloride 0.9% 250 ML 250 ML IV PRN ×2 (16:55→17:18)
[2018-06-10] MEDS ORDERED: Magnesium Oxide 400 MG TAB PO PRN ×4 (16:55→17:18)
[2018-06-10] MEDS ORDERED: Potassium Phosphate 9 MMOL in Sodium Chloride 0.9% 100 ML IVPB PRN ×2 (16:55→17:18)
[2018-06-10] MEDS ORDERED: Potassium Phosphate 15 MMOL in Sodium Chloride 0.9% 250 ML 250 ML IV PRN ×2 (16:55→17:18)
[2018-06-10] MEDS ORDERED: Magnesium 2 GM/NS 0.9% 100 ML 2 GM in Premix Bag 1 BAG IVPB PRN ×2 (16:55→17:18)
[2018-06-10] MEDS ORDERED: Potassium Chloride 40 MEQ in Premix Bag 1 BAG IVPB PRN ×2 (16:55→17:18)
[2018-06-10] MEDS ORDERED: Potassium Chloride 20 MEQ TAB PO PRN ×2 (16:55→17:18)
[2018-06-10] MEDS ORDERED: Insulin Regular 300 UNITS/3 ML VIAL IVP SCH (17:00)
[2018-06-10] MEDS ORDERED: NS 0.9% w/ 20 MEQ KCL 1,000 ML IV PRN ×2 (17:06)
[2018-06-10] MEDS ORDERED: Guaifenesin DM 100-10/5 ML UDCUP PO PRN (17:06)
[2018-06-10] MEDS ORDERED: Ondansetron PF 4 MG/2 ML Vial IVP PRN (17:06)
[2018-06-10] MEDS ORDERED: Acetaminophen 325 MG TAB PO PRN (17:06)
[2018-06-10] MEDS ORDERED: CCU Electrolyte Replacement 1 EACH IVPB ONE (17:06)
[2018-06-10 17:11] LABS: Anion Gap 16 mmol/L (10-20); BUN (Urea Nitrogen) 5 mg/dL (7.0-18.7); Calc. Creatinine Clearance 156 mL/min (70-130); Calcium 8.3 mg/dL (7.8-10.44); Chloride 116 mmol/L (98-107); Estimated GFR-MDRD 84; Glucose 248 mg/dL (70-105); Sodium 138 mmol/L (136-145)
[2018-06-10 17:29] LABS: Carbon Dioxide 9 mmol/L (22-29)
[2018-06-10] MEDS: Potassium Chloride 40 MEQ in Sodium Chloride 0.9% 250 ML 250 ML IVPB PRN (18:38)
[2018-06-10 21:37] LABS: Anion Gap 10 mmol/L (10-20); BUN (Urea Nitrogen) Less than 4 mg/dL (7.0-18.7); Calc. Creatinine Clearance 151 mL/min (70-130); Calcium 8.1 mg/dL (7.8-10.44); Carbon Dioxide 13 mmol/L (22-29); Chloride 116 mmol/L (98-107); Estimated GFR-MDRD 81; Glucose 272 mg/dL (70-105); Potassium 3.1 mmol/L (3.5-5.1); Sodium 136 mmol/L (136-145)
[2018-06-10] MEDS: Famotidine 20 MG TAB PO SCH (22:15)
[2018-06-10] MEDS: D5 1/2 NS w/20 mEq KCL 1,000 ML IV PRN (22:17)
[2018-06-11 01:42] LABS: Anion Gap 7 mmol/L (10-20); BUN (Urea Nitrogen) Less than 4 mg/dL (7.0-18.7); Calc. Creatinine Clearance 160 mL/min (70-130); Carbon Dioxide 16 mmol/L (22-29); Chloride 114 mmol/L (98-107); Estimated GFR-MDRD 86; Glucose 327 mg/dL (70-105); Sodium 134 mmol/L (136-145)
[2018-06-11 01:46] LABS: Potassium 2.7 mmol/L (3.5-5.1)
[2018-06-11] MEDS: D5 1/2 NS w/20 mEq KCL 1,000 ML IV PRN ×2 (02:34→08:56)
[2018-06-11] MEDS: Potassium Chloride 40 MEQ in Sodium Chloride 0.9% 250 ML 250 ML IVPB PRN (02:58)
--- NOTE | 2018-06-11 03:09 | HP ---
REASON FOR ADMISSION: DKA and severe dehydration. HISTORY OF PRESENTING ILLNESS: The patient gives history of feeling very weak and short of breath from early this morning. The patient says she had loss of appetite and was very thirsty. She also had nauseating feeling and could not keep anything down. She has been having headaches. The patient has a history of recent diagnosis of diabetes and was placed on metformin and glipizide, which she apparently took for 2 weeks and has not been taking it for last 2 weeks now. No complaints of fever , cough, or expectoration. No abdominal pain as such at present. Her laparoscopic cholecystectomy wounds have healed nice and good. This was done on 8th of this month, that is when she got diagnosed with diabetes as well. PAST MEDICAL AND SURGICAL HISTORY: Obesity, new diagnosis of diabetes mellitus type 2, recent laparoscopic cholecystectomy done on the , , tonsillectomy , and GERD. CURRENT MEDICATIONS: 1. Glipizide 5 mg daily. 2. Metformin 500 mg twice daily. ALLERGIES: NO KNOWN DRUG ALLERGIES. PERSONAL HISTORY: Does not abuse alcohol or drugs. No history of smoking. FAMILY HISTORY: She does not know much about her mother. Father has history of diabetes. REVIEW OF SYSTEMS: CONSTITUTIONAL: Negative for weight loss or gain, ability to conduct usual activities. SKIN: Negative for rash, itching. EYES: Negative for double vision, pain. ENT/MOUTH: Negative for nose bleeding, neck stiffness, pain, tenderness. CARDIOVASCULAR: Negative for palpitations, dyspnea on exertion, orthopnea. RESPIRATORY: Negative for shortness of breath, wheezing, cough, hemoptysis, fever or night sweats. GASTROINTESTINAL: Negative for poor appetite, abdominal pain, heartburn, nausea , vomiting, constipation, or diarrhea. GENITOURINARY: Negative for urgency, frequency, dysuria, nocturia. MUSCULOSKELETAL: Negative for pain, swelling. NEUROLOGIC/PSYCHIATRIC: Negative for anxiety, depression. ALLERGY/IMMUNOLOGIC: Negative for skin rash, bleeding tendency. PHYSICAL EXAMINATION: GENERAL: The patient is a 18-year-old female, who is currently not in any acute distress, but is lethargic. VITAL SIGNS: Blood pressure 154/100, pulse 120 per minute, respiratory rate 26 per minute, temperature 97.7 degrees Farenheit, and saturation 96% on room air. NECK: Supple. No elevated JVD. HEENT: Eyes, extraocular muscles intact. Pupils reacting to light. Oral cavity, mucous membranes are dry. No exudates or congestion. CARDIOVASCULAR: S1 and S2 heard. Tachycardiac. No murmurs. RESPIRATORY: Air entry 1+ bilateral. No rales or rhonchi. ABDOMEN: Soft. Bowel sounds heard. No rigidity or guarding. EXTREMITIES: No peripheral edema or calf tenderness. VASCULAR SYSTEM: Peripheral pulses 1+ bilateral. No ischemic ulcerations or gangrenes. CENTRAL NERVOUS SYSTEM: No gross focal deficits noted. The patient is lethargic, but fairly oriented. PSYCHIATRIC: No obvious hallucinations or delusions. LABORATORY DATA: White count of 8, H and H 11 and 39, platelet is 428, MCV is 72 with 80% neutrophils. Serum bicarbonate is 9. BUN 5 and creatinine 0.8. Serum glucose on arrival was 395. Liver enzymes are within normal limits. Albumin is 3.5. Serum test is negative. Venous blood gas done showed a pH of 7.6 with bicarbonate of 8.3, beta hydroxybutyrate was 8.7. UA showed trace leuk esterase with 2+ bacteria. CLINICAL IMPRESSION AND PLAN: The patient will be admitted to [facility] for DKA with the patient being non-complaint with her medications. The patient has obesity and is 18 years old likely has diabetes mellitus type 2. The patient has already been initiated on insulin protocol and cannot obtain a insulin levels at present but will order C- Peptide levels. We will follow DKA evidence based protocol. Obtain urine cultures and blood cultures, and place her on ciprofloxacin for her UTI. Once the patient is more awake and alert, she will be counselled with regard to medication compliance and follow up with her primary care physician. The patient failed to follow up with her primary care physician. She was counseled with regard to checking finger-stick glucose twice daily and to record for 10 days and followup with her primary care physician in 1 week after her last discharge, which she did not comply with. We will continue to closely monitor her in [facility]. Job ID: [id number] [facility]
[2018-06-11 07:01] LABS: Anion Gap 6 mmol/L (10-20); BUN (Urea Nitrogen) Less than 4 mg/dL (7.0-18.7); Calc. Creatinine Clearance 190 mL/min (70-130); Calcium 8.3 mg/dL (7.8-10.44); Carbon Dioxide 18 mmol/L (22-29); Chloride 114 mmol/L (98-107); Estimated GFR-MDRD Greater than 90; Glucose 148 mg/dL (70-105); Sodium 135 mmol/L (136-145)
[2018-06-11 07:03] LABS: Potassium 2.8 mmol/L (3.5-5.1)
[2018-06-11] MEDS: Famotidine 20 MG TAB PO SCH ×2 (08:52→20:19)
[2018-06-11] MEDS: Enoxaparin Sodium 40 MG/0.4 ML SYRINGE SC SCH (08:52)
[2018-06-11] MEDS ORDERED: Prevnar 13-Val Conj/PF 0.5 ML SYRINGE IM ONE (09:00)
[2018-06-11] MEDS ORDERED: Insulin Glargine 15 UNITS in Pre-Filled Syringe 1 EACH SC SCH ×2 (09:30→21:00)
[2018-06-11] MEDS: Sodium Chloride 0.9% 1,000 ML IV SCH (11:19)
[2018-06-11 12:57] LABS: Potassium 3.3 mmol/L (3.5-5.1)
[2018-06-11] MEDS ORDERED: Potassium Chloride 20 MEQ TAB PO SCH (13:40)
--- NOTE | 2018-06-11 13:43 | PDOC.PN ---
- Subjective Encounter Start Date: 06/11/18 Encounter Start Time: 07:30 Subjective: no headache or nausea, feels better -: loss of appetite, no abd pain - Objective Resuscitation Status - Order Detail: 06/10/18 17:02 Resuscitation Status Routine Resuscitation Status: FULL: Full Resuscitation MAR Reviewed: Yes Vital Signs & Weight: Vital Signs (12 hours) Temp Pulse Ox 06/11/18 07:54 100 06/11/18 07:00 98.3 F Weight Weight 209 lb 7.026 oz Most Recent Monitor Data Heart Rate from ECG 99 NIBP 126/90 NIBP BP-Mean 102 Respiration from ECG 17 SpO2 100 I&O: 06/10/18 06/11/18 06/12/18 06:59 06:59 06:59 Intake Total 5004 1272 Output Total 1900 700 Balance 3104 572 Result Diagrams: 06/10/18 10:10 06/11/18 12:37 Additional Labs: Accuchecks 06/11/18 06/11/18 06/11/18 11:36 09:51 08:43 POC Glucose 159 H 119 H 138 H 06/11/18 06/11/18 06/11/18 07:48 06:41 05:45 POC Glucose 133 H 131 H 170 H 06/11/18 06/11/18 06/11/18 04:46 03:40 02:33 POC Glucose 225 H 231 H 272 H 06/11/18 06/11/18 06/10/18 01:35 00:39 23:46 POC Glucose 275 H 301 H 318 H 06/10/18 06/10/18 06/10/18 22:32 21:34 20:29 POC Glucose 278 H 279 H 254 H 06/10/18 06/10/18 06/10/18 19:23 18:11 17:09 POC Glucose 227 H 213 H 198 H 06/10/18 14:29 POC Glucose 286 H Phys Exam - Physical Examination HEENT: PERRLA, sclera anicteric Neck: no JVD, supple Respiratory: no wheezing, no rales Cardiovascular: RRR, no significant murmur Gastrointestinal: soft, non-tender, positive bowel sounds Musculoskeletal: no edema, pulses present Neurological: non-focal, moves all 4 limbs Psychiatric: normal affect, A&O x 3 Dx/Plan (1) DKA (diabetic ketoacidoses) Code(s): E13.10 - OTH DIABETES MELLITUS WITH KETOACIDOSIS WITHOUT COMA Status : Acute Qualifiers: Diabetes mellitus complication detail: without coma Comment: resolving (2) Diabetes mellitus Code(s): E11.9 - TYPE 2 DIABETES MELLITUS WITHOUT COMPLICATIONS Status: Acute Qualifiers: Diabetes mellitus type: type 1 Comment: likely type 1 but is obese as well, await c-peptide levels (3) Chronic anemia Code(s): D64.9 - ANEMIA, UNSPECIFIED Status: Chronic (4) Obesity Code(s): E66.9 - OBESITY, UNSPECIFIED Status: Chronic Qualifiers: Obesity classification: adult class 1 (BMI 30 - 34.9) - Plan lantus 15 u bid, humalog mod scale -: continue iv hydration, K supplements -: cipro for suspected uti, await cultures -: to ambulate later this evening in hallway -: hemostable, tx to med floor * . Review of Systems - Medications/Allergies Allergies/Adverse Reactions: Allergies Allergy/AdvReac Type Severity Reaction Status Date / Time No Known Allergies Allergy Verified 06/10/18 21:25 Medications: Current Medications Acetaminophen (Tylenol) 650 mg PO Q4H PRN PRN Reason: Headache/Fever/Mild Pain (1-3) Enoxaparin Sodium (Lovenox) 40 mg SC 0900 [facility] Last Admin: 06/11/18 08:52 Dose: 40 mg Famotidine (Pepcid) 20 mg PO BID [facility] Last Admin: 06/11/18 08:52 Dose: 20 mg Guaifenesin/Dextromethorphan (Robitussin Dm) 15 ml PO Q4H PRN PRN Reason: Cough Ciprofloxacin/Dextrose 400 mg/ (Device) 200 mls @ 200 mls/hr IVPB Q12HR [facility] Last Admin: 06/11/18 08:51 Dose: 200 mls Insulin Glargine 15 units/ (Miscellaneous Medication) 0.15 mls @ 0 mls/hr SC BID [facility] Sodium Chloride (Normal Saline 0.9%) 1,000 mls @ 75 mls/hr IV .[id number] [facility] Last Admin: 06/11/18 11:19 Dose: Not Given Potassium Chloride (K-Dur) 40 meq PO BID-[facility] Potassium Chloride (K-Dur) 40 meq PO ONE STA Stop: 06/11/18 13:41
[2018-06-11] MEDS ORDERED: HumaLOG 300 UNITS/3 ML VIAL SC PRN (13:45)
[2018-06-11] MEDS ORDERED: Dextrose 50% Abboject 50 ML SYRINGE SLOW IVP PRN (13:45)
[2018-06-11] MEDS ORDERED: Dextrose 5% in Water 1,000 ML IV PRN (13:45)
[2018-06-11] MEDS: Potassium Chloride 20 MEQ TAB PO SCH (17:55)
[2018-06-11] MEDS: HumaLOG 300 UNITS/3 ML VIAL SC PRN (17:58)
[2018-06-12] MEDS: Sodium Chloride 0.9% 1,000 ML IV SCH ×3 (01:26→23:17)
[2018-06-12 05:50] LABS: Anion Gap 9 mmol/L (10-20); BUN (Urea Nitrogen) Less than 4 mg/dL (7.0-18.7); Calc. Creatinine Clearance 217 mL/min (70-130); Calcium 7.8 mg/dL (7.8-10.44); Carbon Dioxide 22 mmol/L (22-29); Chloride 108 mmol/L (98-107); Estimated GFR-MDRD Greater than 90; Glucose 296 mg/dL (70-105); Sodium 136 mmol/L (136-145)
[2018-06-12 05:53] LABS: Potassium 2.7 mmol/L (3.5-5.1)
[2018-06-12 06:07] LABS: Anisocytosis SLIGHT = 6-15 cells (100X) (0-5/hpf); Band 1 % (5-11); Eosinophils 3 % (0-10); Hemoglobin 9.5 g/dL (12.0-16.0); Lymphocytes 37 % (28-48); MDiff Complete? YES; Mean Corpuscular HGB CONC 33.1 g/dL (32.0-36.0); Mean Corpuscular Hemoglobin 23.8 pg (25.0-35.0); Mean Corpuscular Volume 71.8 fL (78.0-98.0); Mean Platelet Volume 9.7 fL (7.4-10.4); Monocytes 9 % (0-4); Neutrophil 49 % (31-61); Nucleated RBC 1 % (0); PLT Morphology Comment Appears Adequate; Platelet Count 212 thou/uL (130-400); Polychromasia SLIGHT = 2-3 cells (100X) (0-2/hpf); RBC Distribution Width 17.1 % (11.5-14.5); Reactive Lymphocytes 1 % (0-10); Red Blood Cell (RBC) Count 3.98 mill/uL (4.00-5.20); Schistocytes SLIGHT = 2-5 cells (100X) (0-1/hpf); Tear Drops SLIGHT = 2-5 cells (100X) (0-1/hpf); White Blood Cell (WBC) Count 3.4 thou/uL (4.8-10.8)
[2018-06-12] MEDS: HumaLOG 300 UNITS/3 ML VIAL SC PRN ×3 (06:09→18:12)
[2018-06-12] MEDS ORDERED: Magnesium 2 GM/50 ML 2 GM in Premix Bag 1 BAG IVPB PRN (06:16)
[2018-06-12] MEDS ORDERED: Potassium Chloride 40 MEQ in Sodium Chloride 0.9% 250 ML 250 ML IVPB SCH (06:30)
[2018-06-12] MEDS ORDERED: Potassium Chloride 20 MEQ TAB PO SCH (08:30)
[2018-06-12] MEDS ORDERED: glipiZIDE 5 MG TAB PO SCH (08:30)
[2018-06-12] MEDS: Enoxaparin Sodium 40 MG/0.4 ML SYRINGE SC SCH (09:43)
[2018-06-12] MEDS: Insulin Glargine 25 UNITS in Pre-Filled Syringe 1 EACH SC SCH ×2 (09:43→20:06)
[2018-06-12] MEDS: Famotidine 20 MG TAB PO SCH ×2 (09:44→20:05)
[2018-06-12] MEDS: Potassium Chloride 20 MEQ TAB PO SCH (11:12)
--- NOTE | 2018-06-12 12:44 | PDOC.PN ---
- Subjective Encounter Start Date: 06/12/18 Encounter Start Time: 11:30 Subjective: no sob or abd pain -: feels better - Objective Resuscitation Status - Order Detail: 06/10/18 17:02 Resuscitation Status Routine Resuscitation Status: FULL: Full Resuscitation MAR Reviewed: Yes Vital Signs & Weight: Vital Signs (12 hours) Temp Pulse Resp BP Pulse Ox 06/12/18 08:00 98 06/12/18 07:18 98.5 F 97 18 93/61 98 Weight Weight 209 lb 7.026 oz Most Recent Monitor Data Heart Rate from ECG 99 NIBP 126/90 NIBP BP-Mean 102 Respiration from ECG 17 SpO2 100 I&O: 06/11/18 06/12/18 06/13/18 06:59 06:59 06:59 Intake Total 5004 1452 Output Total 1900 700 Balance 3104 752 Result Diagrams: 06/12/18 04:39 06/12/18 04:39 Additional Labs: Accuchecks 06/12/18 06/12/18 06/11/18 11:00 05:38 20:18 POC Glucose 185 H 296 H 263 H 06/11/18 16:22 POC Glucose 350 H Phys Exam - Physical Examination HEENT: PERRLA, moist MMs Neck: no JVD, supple Respiratory: no wheezing, no rales Cardiovascular: RRR, no significant murmur Gastrointestinal: soft, non-tender, positive bowel sounds Musculoskeletal: no edema, pulses present Neurological: non-focal, moves all 4 limbs Psychiatric: normal affect, A&O x 3 Dx/Plan (1) DKA (diabetic ketoacidoses) Code(s): E13.10 - OTH DIABETES MELLITUS WITH KETOACIDOSIS WITHOUT COMA Status : Acute Qualifiers: Diabetes mellitus complication detail: without coma Comment: resolving (2) Diabetes mellitus Code(s): E11.9 - TYPE 2 DIABETES MELLITUS WITHOUT COMPLICATIONS Status: Acute Qualifiers: Diabetes mellitus type: type 1 Comment: likely type 1 but is obese as well, await c-peptide levels (3) Chronic anemia Code(s): D64.9 - ANEMIA, UNSPECIFIED Status: Chronic (4) Obesity Code(s): E66.9 - OBESITY, UNSPECIFIED Status: Chronic Qualifiers: Obesity classification: adult class 1 (BMI 30 - 34.9) - Plan urine cs is contaminated, continue cipro -: increase lantus to 25u bid, add glipizide daily -: to amb as tolerated -: replace potassium -: dc plan in am, counselled reg med/diet compliance * . Review of Systems - Medications/Allergies Allergies/Adverse Reactions: Allergies Allergy/AdvReac Type Severity Reaction Status Date / Time No Known Allergies Allergy Verified 06/10/18 21:25 Medications: Current Medications Acetaminophen (Tylenol) 650 mg PO Q4H PRN PRN Reason: Headache/Fever/Mild Pain (1-3) Dextrose/Water (Dextrose 50%) 25 gm SLOW IVP PRN PRN PRN Reason: Hypoglycemia Enoxaparin Sodium (Lovenox) 40 mg SC 0900 [facility] Last Admin: 06/12/18 09:43 Dose: 40 mg Famotidine (Pepcid) 20 mg PO BID [facility] Last Admin: 06/12/18 09:44 Dose: 20 mg Ferrous Sulfate (Feosol) 325 mg PO BID-WM [facility] Glipizide (Glucotrol) 5 mg PO DAILY-AC [facility] Glucagon (Glucagon) 1 mg IM PRN PRN PRN Reason: Hypoglycemia Guaifenesin/Dextromethorphan (Robitussin Dm) 15 ml PO Q4H PRN PRN Reason: Cough Ciprofloxacin/Dextrose 400 mg/ (Device) 200 mls @ 200 mls/hr IVPB Q12HR [facility] Last Admin: 06/12/18 11:49 Dose: 200 mls Sodium Chloride (Normal Saline 0.9%) 1,000 mls @ 75 mls/hr IV .[id number] [facility] Last Admin: 06/12/18 01:26 Dose: 1,000 mls Dextrose/Water (D5w) 1,000 mls @ 0 mls/hr IV .Q0M PRN PRN Reason: Hypoglycemia Magnesium Sulfate 2 gm/ Device 50 mls @ 50 mls/hr IVPB ONE PRN PRN Reason: IF MAG LEVEL LESS THAN 2 Stop: 06/12/18 14:00 Insulin Glargine 25 units/ (Miscellaneous Medication) 0.25 mls @ 0 mls/hr SC BID [facility] Last Admin: 06/12/18 09:43 Dose: 0.25 mls Insulin Human Lispro (Humalog) 0 units SC .MODERATE SLIDING SC PRN PRN Reason: Moderate Correctional Scale Last Admin: 06/12/18 11:50 Dose: 2 unit Insulin Human Lispro (Humalog) 0 units SC .BEDTIME SLIDING SC PRN PRN Reason: Bedtime Correctional Scale Last Admin: 06/11/18 20:24 Dose: 3 unit Potassium Chloride (Klor-Con) 40 meq PO Q6H [facility] Stop: 06/13/18 16:31 Last Admin: 06/12/18 11:50 Dose: 40 meq
[2018-06-12] MEDS: Ferrous Sulfate 325 MG TAB PO SCH (18:11)
[2018-06-13] MEDS: HumaLOG 300 UNITS/3 ML VIAL SC PRN (05:08)
[2018-06-13 05:46] LABS: Anion Gap 9 mmol/L (10-20); BUN (Urea Nitrogen) Less than 4 mg/dL (7.0-18.7); Calc. Creatinine Clearance 240 mL/min (70-130); Calcium 7.8 mg/dL (7.8-10.44); Carbon Dioxide 25 mmol/L (22-29); Chloride 109 mmol/L (98-107); Estimated GFR-MDRD Greater than 90; Glucose 196 mg/dL (70-105); Sodium 140 mmol/L (136-145)
[2018-06-13 05:56] LABS: Potassium 2.8 mmol/L (3.5-5.1)
[2018-06-13] MEDS: Potassium Chloride 10 MEQ in Premix Bag 1 BAG IVPB SCH ×2 (07:09→08:13)
[2018-06-13] MEDS ORDERED: glipiZIDE 5 MG TAB PO SCH (07:30)
[2018-06-13] MEDS: Insulin Glargine 25 UNITS in Pre-Filled Syringe 1 EACH SC SCH (08:33)
[2018-06-13] MEDS: Enoxaparin Sodium 40 MG/0.4 ML SYRINGE SC SCH (08:33)
[2018-06-13] MEDS: Ferrous Sulfate 325 MG TAB PO SCH ×2 (08:33→17:31)
[2018-06-13] MEDS: Famotidine 20 MG TAB PO SCH ×2 (08:33→20:00)
--- NOTE | 2018-06-13 11:27 | PDOC.PN ---
- Subjective Encounter Start Date: 06/13/18 Encounter Start Time: 10:45 Subjective: no nausea or abd pain -: eating better, is amb in room -: no chest pain or palp - Objective Resuscitation Status - Order Detail: 06/10/18 17:02 Resuscitation Status Routine Resuscitation Status: FULL: Full Resuscitation MAR Reviewed: Yes Vital Signs & Weight: Vital Signs (12 hours) Temp Pulse Resp BP Pulse Ox 06/13/18 07:45 98.1 F 74 19 123/85 99 Weight Weight 209 lb 7.026 oz Most Recent Monitor Data Heart Rate from ECG 99 NIBP 126/90 NIBP BP-Mean 102 Respiration from ECG 17 SpO2 100 I&O: 06/12/18 06/13/18 06/14/18 06:59 06:59 06:59 Intake Total 1452 1510 Output Total 700 Balance 752 1510 Result Diagrams: 06/12/18 04:39 06/13/18 05:05 Additional Labs: Accuchecks 06/13/18 06/12/18 06/12/18 03:57 19:24 16:08 POC Glucose 181 H 166 H 208 H 06/12/18 06/10/18 11:00 15:44 POC Glucose 185 H 239 H Phys Exam - Physical Examination HEENT: PERRLA, moist MMs Neck: no JVD, supple Respiratory: no wheezing, no rales Cardiovascular: RRR, no significant murmur Gastrointestinal: soft, non-tender, positive bowel sounds Musculoskeletal: no edema, pulses present Neurological: non-focal, moves all 4 limbs Psychiatric: normal affect, A&O x 3 Dx/Plan (1) DKA (diabetic ketoacidoses) Code(s): E13.10 - OTH DIABETES MELLITUS WITH KETOACIDOSIS WITHOUT COMA Status : Resolved Qualifiers: Diabetes mellitus type: type 1 Diabetes mellitus complication detail: without coma Qualified Code(s): E10.10 - Type 1 diabetes mellitus with ketoacidosis without coma Comment: resolving (2) Diabetes mellitus Code(s): E11.9 - TYPE 2 DIABETES MELLITUS WITHOUT COMPLICATIONS Status: Acute Qualifiers: Diabetes mellitus type: type 1 Comment: c-peptide level is 0.7 very low (3) Chronic anemia Code(s): D64.9 - ANEMIA, UNSPECIFIED Status: Chronic (4) Obesity Code(s): E66.9 - OBESITY, UNSPECIFIED Status: Chronic Qualifiers: Obesity classification: adult class 1 (BMI 30 - 34.9) - Plan nph 25 u bid for dc planning, has no insurance -: dc coverage humalog for now -: cipro for uti x 3 days -: replace potassium -: dc plan when electrolytes and glucose stabilize, ?am * . Review of Systems - Medications/Allergies Allergies/Adverse Reactions: Allergies Allergy/AdvReac Type Severity Reaction Status Date / Time No Known Allergies Allergy Verified 06/10/18 21:25 Medications: Current Medications Acetaminophen (Tylenol) 650 mg PO Q4H PRN PRN Reason: Headache/Fever/Mild Pain (1-3) Ciprofloxacin (Cipro) 500 mg PO 0600,2000 [facility] Dextrose/Water (Dextrose 50%) 25 gm SLOW IVP PRN PRN PRN Reason: Hypoglycemia Enoxaparin Sodium (Lovenox) 40 mg SC 0900 [facility] Last Admin: 06/13/18 08:33 Dose: 40 mg Famotidine (Pepcid) 20 mg PO BID [facility] Last Admin: 06/13/18 08:33 Dose: 20 mg Ferrous Sulfate (Feosol) 325 mg PO BID-WM [facility] Last Admin: 06/13/18 08:33 Dose: 325 mg Glipizide (Glucotrol) 5 mg PO DAILY-AC [facility] Last Admin: 06/13/18 08:33 Dose: 5 mg Glucagon (Glucagon) 1 mg IM PRN PRN PRN Reason: Hypoglycemia Guaifenesin/Dextromethorphan (Robitussin Dm) 15 ml PO Q4H PRN PRN Reason: Cough Dextrose/Water (D5w) 1,000 mls @ 0 mls/hr IV .Q0M PRN PRN Reason: Hypoglycemia Insulin Glargine 25 units/ (Miscellaneous Medication) 0.25 mls @ 0 mls/hr SC BID [facility] Last Admin: 06/13/18 08:33 Dose: 0.25 mls Insulin Human Lispro (Humalog) 0 units SC .MODERATE SLIDING SC PRN PRN Reason: Moderate Correctional Scale Last Admin: 06/13/18 05:08 Dose: 2 unit Insulin Human Lispro (Humalog) 0 units SC .BEDTIME SLIDING SC PRN PRN Reason: Bedtime Correctional Scale Last Admin: 06/11/18 20:24 Dose: 3 unit Potassium Chloride (Klor-Con) 40 meq PO Q6HR [facility] Stop: 06/14/18 06:01
[2018-06-13] MEDS: Insulin NPH/Reg Insulin Hm 300 UNITS/3 ML VIAL SC SCH (17:31)
[2018-06-13] MEDS: Ciprofloxacin 500 MG TAB PO SCH (20:00)
[2018-06-14] MEDS: Ciprofloxacin 500 MG TAB PO SCH (05:37)
[2018-06-14 06:08] LABS: Anion Gap 10 mmol/L (10-20); BUN (Urea Nitrogen) 4 mg/dL (7.0-18.7); Calc. Creatinine Clearance 236 mL/min (70-130); Calcium 8.3 mg/dL (7.8-10.44); Carbon Dioxide 24 mmol/L (22-29); Chloride 108 mmol/L (98-107); Estimated GFR-MDRD Greater than 90; Glucose 225 mg/dL (70-105); Potassium 3.7 mmol/L (3.5-5.1); Sodium 138 mmol/L (136-145)
[2018-06-14] MEDS: Enoxaparin Sodium 40 MG/0.4 ML SYRINGE SC SCH (08:57)
[2018-06-14] MEDS: Insulin NPH/Reg Insulin Hm 300 UNITS/3 ML VIAL SC SCH (08:57)
[2018-06-14] MEDS: Ferrous Sulfate 325 MG TAB PO SCH (08:58)
[2018-06-14] MEDS: Famotidine 20 MG TAB PO SCH (08:58)
--- NOTE | 2018-06-14 15:42 | PDOC.PN ---
- Subjective Encounter Start Date: 06/14/18 Encounter Start Time: 07:40 Subjective: feels good, is eating and ambulating well - Objective Resuscitation Status - Order Detail: 06/10/18 17:02 Resuscitation Status Routine Resuscitation Status: FULL: Full Resuscitation MAR Reviewed: Yes Vital Signs & Weight: Vital Signs (12 hours) Temp Pulse Resp BP Pulse Ox 06/14/18 07:34 98 F 77 17 103/71 98 Weight Weight 209 lb 7.026 oz Most Recent Monitor Data Heart Rate from ECG 99 NIBP 126/90 NIBP BP-Mean 102 Respiration from ECG 17 SpO2 100 I&O: 06/13/18 06/14/18 06/15/18 06:59 06:59 06:59 Intake Total 1510 Balance 1510 Result Diagrams: 06/12/18 04:39 06/14/18 04:29 Additional Labs: Accuchecks 06/14/18 06/14/18 06/13/18 11:37 04:39 19:38 POC Glucose 235 H 219 H 212 H 06/13/18 15:38 POC Glucose 219 H Phys Exam - Physical Examination HEENT: PERRLA, moist MMs Neck: no JVD, supple Respiratory: no wheezing, no rales Cardiovascular: RRR, no significant murmur Gastrointestinal: soft, non-tender, positive bowel sounds Musculoskeletal: no edema, pulses present Neurological: non-focal, moves all 4 limbs Psychiatric: normal affect, A&O x 3 Dx/Plan (1) DKA (diabetic ketoacidoses) Code(s): E13.10 - OTH DIABETES MELLITUS WITH KETOACIDOSIS WITHOUT COMA Status : Resolved Qualifiers: Diabetes mellitus type: type 1 Diabetes mellitus complication detail: without coma Qualified Code(s): E10.10 - Type 1 diabetes mellitus with ketoacidosis without coma Comment: resolving (2) Diabetes mellitus Code(s): E11.9 - TYPE 2 DIABETES MELLITUS WITHOUT COMPLICATIONS Status: Acute Qualifiers: Diabetes mellitus type: type 1 Comment: c-peptide level is 0.7 very low (3) Chronic anemia Code(s): D64.9 - ANEMIA, UNSPECIFIED Status: Chronic (4) Obesity Code(s): E66.9 - OBESITY, UNSPECIFIED Status: Chronic Qualifiers: Obesity classification: adult class 1 (BMI 30 - 34.9) - Plan hemostable -: dc pt home -: offered to do usg pelvis to see for ovaries (prior rupture of ovarian cyst -: visualized during lap alon), pt wants it done as outpt via [facility] * .
[2018-06-14 16:10] VITALS: BP 108/76; TEMP 98.1
--- NOTE | 2018-06-14 17:27 | DIS ---
DATE OF ADMISSION: 06/10/2018 DATE OF DISCHARGE: 06/14/2018 DISCHARGE DISPOSITION: To home. PRIMARY DISCHARGE DIAGNOSES: 1. Diabetic ketoacidosis with type 1 diabetes. 2. Chronic anemia. 3. Obesity. PROCEDURES DONE DURING HOSPITALIZATION: The patient has had chest x-ray done on the day of admission, which showed no acute cardiopulmonary abnormality. H and H 9.5 and 28, MCV is 71, and platelet count is 212. Venous blood gas done showed a pH of 7.10. Serum bicarb was less than 8 on the day of admission with serum glucose of 497. Serum test was negative. Beta-hydroxybutyrate was 8.7. C-peptide level was obtained, which was 0.7 ng/mL. DISCHARGE MEDICATIONS: 1. NPH 70/30, 25 units subcu twice daily. 2. Ferrous sulfate 325 mg p.o. twice daily. 3. Ciprofloxacin 500 mg p.o. twice daily for another three days for urinary tract infection. ALLERGIES: NO KNOWN DRUG ALLERGIES. DISCHARGE PLAN: The patient has been advised to check fingerstick glucose twice daily prior to taking her insulin and record to follow up with primary care physician for changes in her insulin dose, to follow up with primary care physician in one week. BRIEF COURSE DURING HOSPITALIZATION: The patient initially was brought to the emergency room after she had intractable nausea and vomiting and was severely dehydrated. The patient was diagnosed with DKA with severe dehydration. She was placed in ICU on insulin drip. The patient was recently diagnosed with diabetes and was not compliant with her medications or diet. She had not followed up with her primary care physician after being discharged. She also had severe acidosis, which was corrected in ICU. She was placed on NPH insulin, and her glucose is slowly stabilizing. C-peptide level was obtained, which was less than 0.7 ng/mL. The patient is a type 1 diabetic. She was counseled multiple times regarding dietary compliance, checking her fingerstick, and medication compliance. She is being told to follow up with her primary care physician in 1 week. Also, the patient was advised to inform her [employer] if she were to get in view of her new diabetes type 1 status. Please see a [id number] documentation on [employer] for the day of discharge. Job ID: [id number]
== END 2018-06-14 16:11 | disposition home or self-care (01) | DRG 638 ==
LOC: SCSER 09:32 → CCU 15:47 → T4-B 06-11 13:12
PROVIDERS: ADMIT Internal Medicine; ATTEND Internal Medicine
DX: E10.10 Type 1 diabetes mellitus with ketoacidosis without coma (principal); N39.0 Urinary tract infection, site not specified; E66.9 Obesity, unspecified; E86.0 Dehydration; D64.9 Anemia, unspecified; Z90.49 Acquired absence of other specified parts of digestive tract; Z79.84 Long term (current) use of oral hypoglycemic drugs; Z91.14 Patient's other noncompliance with medication regimen
CPT/HCPCS: 36415; 36416; 71045; 80048; 80053; 81003; 81015; 82010; 82330; 82803; 83605; 83735; 84681; 84703; 85025; 87040; 87077; 87086; 87186; 96361; 96365; 96366; 96367; 96376; J0744; J1650; J1815; J2405; J3480; J7050